=== PATIENT | female | born 1990 | race Caucasian/White ===

== ENCOUNTER 2017-03-30 19:50 | Emergency (ER) | payer OTHER ==
[2017-03-30 20:51] VITALS: BP 118/74
== END 2017-03-30 20:51 | disposition home or self-care (01) ==
LOC: ED 19:50
DX: S61.101A Unspecified open wound of right thumb with damage to nail, initial encounter (principal); X58.XXXA Exposure to other specified factors, initial encounter; Y93.89 Activity, other specified; Y92.89 Other specified places as the place of occurrence of the external cause; Y99.8 Other external cause status
CPT/HCPCS: 90715

== ENCOUNTER 2018-03-05 17:09 | Emergency (ER) | payer OTHER ==
[~2018-03-05] VITALS: Ht 162.6 cm; Wt 86.6 kg
[2018-03-05 17:19] VITALS: Ht 162.6 cm; Wt 86.6 kg
[2018-03-05 18:47] VITALS: BP 121/74
== END 2018-03-05 18:47 | disposition home or self-care (01) ==
LOC: ED 17:09
DX: S19.9XXA Unspecified injury of neck, initial encounter (principal); R07.0 Pain in throat; T74.11XA Adult physical abuse, confirmed, initial encounter; X58.XXXA Exposure to other specified factors, initial encounter; Y93.89 Activity, other specified; Y92.89 Other specified places as the place of occurrence of the external cause; Y99.8 Other external cause status
CPT/HCPCS: Q0092